=== PATIENT | male | born 2000 | race Asian ===

== ENCOUNTER 2019-02-02 12:12 | Emergency (ER) | payer OTHER ==
[~2019-02-02] VITALS: Ht 165.1 cm; Wt 54.4 kg
[2019-02-02 12:18] VITALS: TEMP 99.9
[2019-02-02 13:15] VITALS: BP 121/71
== END 2019-02-02 13:20 | disposition home or self-care (01) ==
LOC: ED 12:12
DX: J06.9 Acute upper respiratory infection, unspecified (principal); J11.1 Influenza due to unidentified influenza virus with other respiratory manifestations
CPT/HCPCS: 87502; 87651; 99283